=== PATIENT | male | born 1950 | race Caucasian/White ===

== ENCOUNTER 2024-11-15 23:46 | Inpatient (IN) | payer MEDICARE, OTHER ==
[~2024-11-15] VITALS: Ht 182.9 cm; Wt 131.1 kg
[2024-11-16 00:15] VITALS: BP 124/69; TEMP 98; O2SAT 96
[2024-11-16 01:47] LABS: BASOPHILS % (AUTO) 0.4 % (0.0-2.0); EOSINOPHILS # (AUTO) 0.1 K/uL (0.0-0.7); EOSINOPHILS % (AUTO) 2.1 % (0.0-6.0); HEMATOCRIT 46 % (39-51); HEMOGLOBIN 15.2 g/dL (13.5-17.5); LYMPHOCYTES # (AUTO) 1.5 K/uL (0.8-4.8); LYMPHOCYTES % (AUTO) 25.1 % (20.0-44.0); MEAN CORPUSCULAR HEMOGLOBIN 32 PG (26.0-33.0); MEAN CORPUSCULAR HGB CONC 33 g/dl (31.0-36.0); MEAN CORPUSCULAR VOLUME 95 fL (80-96); MONOCYTES # (AUTO) 0.6 K/uL (0.1-1.30); NEUTROPHILS # (AUTO) 3.7 K/uL (1.8-8.9); NEUTROPHILS % (AUTO) 62.4 % (43.0-81.0); PLATELET COUNT (AUTO) 142 K/uL (150-450); RED BLOOD CELL COUNT(AUTO) 4.81 MIL/uL (4.5-6.0); RED CELL DISTRIBUTION WIDTH 14.8 % (11.5-15.0); WHITE BLOOD COUNT (AUTO) 5.9 K/uL (4.3-11.0)
[2024-11-16 02:17] LABS: CALCIUM, SERUM 9.3 mg/dL (8.5-10.1); CARBON DIOXIDE 26 mmol/L (21-32); CHLORIDE 104 mmol/L (98-107); CREATININE 1.4 mg/dL (0.6-1.3); GLUCOSE 85 mg/dL (74-106); POTASSIUM 3.8 mmol/L (3.5-5.1); SODIUM SERUM 139 mmol/L (136-145); UREA NITROGEN, BLOOD 11 mg/dL (7-18)
[2024-11-16 02:32] LABS: APPEARANCE,URINE CLEAR (CLEAR); BILIRUBIN,URINE 1+ (NEGATIVE); BLOOD, URINE NEGATIVE Ery/uL (NEGATIVE); COLOR,URINE YELLOW (YELLOW); KETONES,URINE 1+ mg/dL (NEGATIVE); LEUKOCYTE ESTERASE ,URINE NEGATIVE (NEGATIVE); NITRITE, URINE NEGATIVE (NEGATIVE); PROTEIN,URINE TRACE mg/dl (NEGATIVE); UGLUCOSE NEGATIVE (NEGATIVE)
[2024-11-16 02:42] LABS: ALANINE AMINOTRANSFERASE 18 U/L (12-78); ALBUMIN 3.5 g/dL (3.4-5.0); ALCOHOL, BLOOD < 3 mg/dL (0-10); ALKALINE PHOSPHATASE 80 U/L (46-116); ASPARTATE AMINOTRANSFERASE 20 U/L (15-37); BILIRUBIN,DIRECT 0.2 mg/dL (0.0-0.2); BILIRUBIN,TOTAL 0.8 mg/dL (0.2-1.0); TOTAL PROTEIN, SERUM 7.2 g/dL (6.4-8.2)
[2024-11-16 02:56] LABS: ACETAMINOPHEN <10 ug/ml (10-30); SALICYLATE 0.8 mg/dL (2.8-20.0)
[2024-11-16 02:57] LABS: ADD URINE CULTURE NO; BACTERIA,URINE Rare /HPF (None Seen); RBC,URINE 0-2 /HPF (0-2); SQUAMOUS EPITHELIAL CELL,UR Few /HPF (None Seen); WBC,URINE 0-2 /HPF (0-3)
[2024-11-16 03:13] LABS: AMPHETAMINE, URINE NEGATIVE (NEGATIVE); BARBITURATE, URINE NEGATIVE (NEGATIVE); BENZODIAZEPINE, URINE NEGATIVE (NEGATIVE); CANNABINOID, URINE NEGATIVE (NEGATIVE); COCCAINE, URINE NEGATIVE (NEGATIVE); OPIATE, URINE NEGATIVE (NEGATIVE); PHENCYCLIDINE SCREEN,URINE NEGATIVE (NEGATIVE)
[2024-11-16] MEDS ORDERED: DOFE500C4 PO (03:37)
[2024-11-16] MEDS ORDERED: APIX5TAB PO (03:37)
[2024-11-16] MEDS ORDERED: MONT10TA22 PO (03:37)
[2024-11-16] MEDS ORDERED: BUPR-54 PO (03:37)
[2024-11-16] MEDS ORDERED: CITA40TA22 PO (03:37)
[2024-11-16] MEDS ORDERED: FLUT1BLS6 IH (03:37)
[2024-11-16] MEDS ORDERED: GABA-532 PO (03:37)
[2024-11-16] MEDS ORDERED: ROSU20TA2 PO (03:37)
[2024-11-16] MEDS ORDERED: ONDA4TAB11 PO (03:37)
[2024-11-16] MEDS ORDERED: MAGNESIUM HYDROXIDE 30 ML UDC PO PRN (04:00)
[2024-11-16] MEDS ORDERED: ACETAMINOPHEN 325 MG TABLET PO PRN (04:00)
[2024-11-16] MEDS ORDERED: MAG HYDROX/AL HYDROX/SIMETH 30 ML UDC PO PRN (04:00)
[2024-11-16] MEDS ORDERED: TEMAZEPAM 7.5 MG CAPSULE PO PRN (04:00)
[2024-11-16] MEDS ORDERED: LORAZEPAM 0.5 MG TABLET PO PRN (04:00)
[2024-11-16] MEDS: BLOOD SUGAR DIAGNOSTIC 1 EACH STRIP IN ONE (04:09)
[2024-11-16 05:00] VITALS: BP 133/76; TEMP 98; O2SAT 98
[2024-11-16] MEDS ORDERED: ONDA-97 PO (07:42)
[2024-11-16] MEDS ORDERED: TRELEGY ELLIPTA IH (07:42)
[2024-11-16] MEDS ORDERED: GABA300C PO (07:42)
[2024-11-16 08:00] VITALS: BP 126/77; TEMP 98; O2SAT 97
[2024-11-16] MEDS: ONDANSETRON 4 MG TAB.RAPDIS SL PRN (11:04)
[2024-11-16] MEDS: DULOXETINE HCL 30 MG CAPSULE.DR PO SCH (14:01)
[2024-11-16] MEDS: CITALOPRAM HYDROBROMIDE 20 MG TABLET PO SCH (14:01)
[2024-11-16 16:00] VITALS: BP 118/68; TEMP 98; O2SAT 94
[2024-11-16] MEDS: APIXABAN 5 MG TABLET PO SCH (17:26)
[2024-11-16 21:06] VITALS: BP 127/63; TEMP 98; O2SAT 98
[2024-11-16] MEDS: LORAZEPAM 0.5 MG TABLET PO PRN (22:23)
[2024-11-17] MEDS: TEMAZEPAM 7.5 MG CAPSULE PO PRN (00:16)
[2024-11-17] MEDS: ONDANSETRON 4 MG TAB.RAPDIS PO PRN (07:41)
[2024-11-17 08:00] VITALS: BP 115/60; TEMP 97.8; O2SAT 96
[2024-11-17] MEDS: MONTELUKAST SODIUM (10MG) 10 MG TABLET PO SCH (08:52)
[2024-11-17] MEDS ORDERED: Medication Not On Formulary EA ([Trelegy Ellipta] 1 PUFF) IH SCH (09:00)
[2024-11-17] MEDS: DULOXETINE HCL 30 MG CAPSULE.DR PO SCH (12:54)
[2024-11-17 13:00] LABS: BASOPHILS # (AUTO) 0.1 K/uL (0.0-0.2); BASOPHILS % (AUTO) 1.3 % (0.0-2.0); EOSINOPHILS # (AUTO) 0.2 K/uL (0.0-0.7); EOSINOPHILS % (AUTO) 4.6 % (0.0-6.0); HEMATOCRIT 42 % (39-51); LYMPHOCYTES # (AUTO) 1.3 K/uL (0.8-4.8); LYMPHOCYTES % (AUTO) 27.4 % (20.0-44.0); MEAN CORPUSCULAR HEMOGLOBIN 31 PG (26.0-33.0); MEAN CORPUSCULAR HGB CONC 33 g/dl (31.0-36.0); MEAN CORPUSCULAR VOLUME 94 fL (80-96); MONOCYTES # (AUTO) 0.6 K/uL (0.1-1.30); NEUTROPHILS # (AUTO) 2.5 K/uL (1.8-8.9); NEUTROPHILS % (AUTO) 53.7 % (43.0-81.0); PLATELET COUNT (AUTO) 158 K/uL (150-450); RED BLOOD CELL COUNT(AUTO) 4.47 MIL/uL (4.5-6.0); RED CELL DISTRIBUTION WIDTH 14.6 % (11.5-15.0); WHITE BLOOD COUNT (AUTO) 4.6 K/uL (4.3-11.0)
[2024-11-17 13:19] LABS: CALCIUM, SERUM 8.9 mg/dL (8.5-10.1); CARBON DIOXIDE 25 mmol/L (21-32); CHLORIDE 108 mmol/L (98-107); CREATININE 1.1 mg/dL (0.6-1.3); GLUCOSE 82 mg/dL (74-106); POTASSIUM 4.6 mmol/L (3.5-5.1); SODIUM SERUM 139 mmol/L (136-145); UREA NITROGEN, BLOOD 9 mg/dL (7-18)
[2024-11-17 15:34] LABS: APPEARANCE,URINE CLEAR (CLEAR); BILIRUBIN,URINE NEGATIVE (NEGATIVE); BLOOD, URINE NEGATIVE Ery/uL (NEGATIVE); COLOR,URINE YELLOW (YELLOW); KETONES,URINE NEGATIVE (NEGATIVE); LEUKOCYTE ESTERASE ,URINE NEGATIVE (NEGATIVE); NITRITE, URINE NEGATIVE (NEGATIVE); PROTEIN,URINE NEGATIVE (NEGATIVE); UGLUCOSE NEGATIVE (NEGATIVE)
[2024-11-17 15:39] LABS: ADD URINE CULTURE NO; BACTERIA,URINE None seen /HPF (None Seen); MUCUS,URINE Few /LPF (None Seen); RBC,URINE 0-2 /HPF (0-2); SQUAMOUS EPITHELIAL CELL,UR 0-2 /HPF (None Seen); WBC,URINE 0-2 /HPF (0-3)
[2024-11-17] MEDS: DOFETILIDE 500 MCG PO SCH (17:17)
[2024-11-17 20:43] VITALS: BP 109/72; TEMP 97.9; O2SAT 97
[2024-11-17 22:30] LABS: EOSINOPHIL,URINE None Seen
[2024-11-17] MEDS: GABAPENTIN 300 MG CAPSULE PO PRN (23:59)
[2024-11-18 01:24] LABS: CHOLESTEROL 80 mg/dL (<200); HDL CHOLESTEROL 33 mg/dL (40-60); LDL 43 mg/dL (0-99); TRIGLYCERIDES 51 mg/dL (30-150)
[2024-11-18 01:26] LABS: CREATININE, URINE 172.3 MG/DL (30.0-125.0)
[2024-11-18 07:25] LABS: BASOPHILS % (AUTO) 0.4 % (0.0-2.0); EOSINOPHILS # (AUTO) 0.2 K/uL (0.0-0.7); EOSINOPHILS % (AUTO) 4.4 % (0.0-6.0); HEMATOCRIT 41 % (39-51); HEMOGLOBIN 13.7 g/dL (13.5-17.5); LYMPHOCYTES # (AUTO) 1.4 K/uL (0.8-4.8); LYMPHOCYTES % (AUTO) 31.1 % (20.0-44.0); MEAN CORPUSCULAR HEMOGLOBIN 31 PG (26.0-33.0); MEAN CORPUSCULAR HGB CONC 33 g/dl (31.0-36.0); MEAN CORPUSCULAR VOLUME 93 fL (80-96); MONOCYTES # (AUTO) 0.5 K/uL (0.1-1.30); MONOCYTES % (AUTO) 11.3 % (2.0-12.0); NEUTROPHILS # (AUTO) 2.3 K/uL (1.8-8.9); NEUTROPHILS % (AUTO) 52.8 % (43.0-81.0); PLATELET COUNT (AUTO) 158 K/uL (150-450); RED BLOOD CELL COUNT(AUTO) 4.42 MIL/uL (4.5-6.0); RED CELL DISTRIBUTION WIDTH 14.2 % (11.5-15.0); WHITE BLOOD COUNT (AUTO) 4.4 K/uL (4.3-11.0)
[2024-11-18 07:44] LABS: ALBUMIN 3.1 g/dL (3.4-5.0); BILIRUBIN,TOTAL 0.8 mg/dL (0.2-1.0); CALCIUM, SERUM 9.1 mg/dL (8.5-10.1); MAGNESIUM 2.4 mg/dL (1.8-2.4); PHOSPHORUS 4.2 mg/dL (2.5-4.9); POTASSIUM 4.1 mmol/L (3.5-5.1); TOTAL PROTEIN, SERUM 6.4 g/dL (6.4-8.2)
[2024-11-18 08:00] VITALS: BP 110/56; TEMP 97.9; O2SAT 94
[2024-11-18 15:20] VITALS: BP 136/78; TEMP 98.1; O2SAT 93
[2024-11-18 20:11] VITALS: BP 106/58; TEMP 98.1; O2SAT 97
[2024-11-19 08:00] VITALS: BP 112/61; TEMP 98.6; O2SAT 98
[2024-11-20 08:07] LABS: PTH, INTACT 36 pg/mL (15-65)
== END 2024-11-19 14:08 | disposition home or self-care (01) | DRG 885 ==
LOC: ER 23:53 → GPS 11-16 03:05
PROVIDERS: ADMIT Nurse Practitioner Psychiatric/Mental Health; ATTEND Internal Medicine
DX: F33.2 Major depressive disorder, recurrent severe without psychotic features (principal); N18.9 Chronic kidney disease, unspecified; N17.9 Acute kidney failure, unspecified; R45.851 Suicidal ideations; F29 Unspecified psychosis not due to a substance or known physiological condition; Z73.6 Limitation of activities due to disability; I48.91 Unspecified atrial fibrillation; Z88.2 Allergy status to sulfonamides; F41.9 Anxiety disorder, unspecified; Z20.822 Contact with and (suspected) exposure to COVID-19; Z98.890 Other specified postprocedural states; R53.1 Weakness; R27.8 Other lack of coordination; Z91.81 History of falling; G31.84 Mild cognitive impairment of uncertain or unknown etiology; G47.33 Obstructive sleep apnea (adult) (pediatric); Z81.8 Family history of other mental and behavioral disorders
CPT/HCPCS: 36415; 76770-TC; 80048-TC; 80053-TC; 80061-TC; 80076-TC; 81001; 82550-TC; 82570-TC; 82962-TC; 83735-TC; 83970; 84100-TC; 84155; 84165; 84300-TC; 85025-TC; 87081-TC; 97112-TC; 97116-TC; 97530-TC; G0480; Q0162